=== PATIENT | female | born 1975 | race Caucasian/White ===

== ENCOUNTER 2019-01-15 07:36 | Outpatient (CLI) | payer OTHER ==
[~2019-01-15] VITALS: Ht 188 cm; Wt 79.9 kg
[~2019-01-15 07:36] MED LIST: METH2.5T PO
[2019-01-15 09:30] VITALS: BP 99/70
[2019-01-15] MEDS ORDERED: SODIUM CHLORIDE 0.9% IV ONE (10:00)
[2019-01-15] MEDS ORDERED: FILTER 1.2 MICRON IV ONE (10:00)
[2019-01-15] MEDS ORDERED: ABATACEPT IV ONE (10:00)
== END 2019-01-15 23:59 | disposition home or self-care (01) ==
LOC: INFUSION 07:36
PROVIDERS: ATTEND Internal Medicine
DX: M05.79 Rheumatoid arthritis with rheumatoid factor of multiple sites without organ or systems involvement (principal)
CPT/HCPCS: 96365; J0129

== ENCOUNTER 2019-02-12 07:49 | Outpatient (CLI) | payer OTHER | END 2019-02-12 23:59 | disposition home or self-care (01) | LOC: INFUSION 07:49 | PROVIDERS: ATTEND Internal Medicine | DX: Z02.9 Encounter for administrative examinations, unspecified (principal) ==

== ENCOUNTER → 2019-03-19 | Outpatient (CLI) | payer OTHER ==
[~2019-03-19] VITALS: Ht 188 cm; Wt 81.7 kg
[~2019-03-19] MED LIST changes: +ABATACEPT IV ONE; +FILTER 1.2 MICRON IV ONE; +SODIUM CHLORIDE 0.9% IV ONE
[2019-03-19 07:40] VITALS: BP 121/82
== END | disposition home or self-care (01) ==
LOC: INFUSION 10:14
PROVIDERS: ATTEND Internal Medicine
DX: M05.79 Rheumatoid arthritis with rheumatoid factor of multiple sites without organ or systems involvement (principal)
CPT/HCPCS: 96365; J0129

== ENCOUNTER → 2019-04-18 | Outpatient (CLI) | payer OTHER ==
[~2019-04-18] VITALS: Ht 188 cm; Wt 81.7 kg
[2019-04-18 14:05] VITALS: BP 103/66
== END | disposition home or self-care (01) ==
LOC: INFUSION 14:09
PROVIDERS: ATTEND Internal Medicine
DX: M05.79 Rheumatoid arthritis with rheumatoid factor of multiple sites without organ or systems involvement (principal)
CPT/HCPCS: 96365; J0129

== ENCOUNTER 2019-05-17 09:28 | Outpatient (CLI) | payer OTHER ==
[~2019-05-17] VITALS: Ht 188 cm; Wt 80.9 kg
[~2019-05-17 09:28] MED LIST changes: -ABATACEPT IV ONE; -FILTER 1.2 MICRON IV ONE; -SODIUM CHLORIDE 0.9% IV ONE
[2019-05-17 09:35] VITALS: BP 109/74
[2019-05-17] MEDS ORDERED: SODIUM CHLORIDE 0.9% IV ONE (10:00)
[2019-05-17] MEDS ORDERED: ABATACEPT IV ONE (10:00)
== END 2019-05-17 23:59 | disposition home or self-care (01) ==
LOC: INFUSION 09:28
PROVIDERS: ATTEND Internal Medicine
DX: M05.79 Rheumatoid arthritis with rheumatoid factor of multiple sites without organ or systems involvement (principal)
CPT/HCPCS: 96365; J0129

== ENCOUNTER → 2019-06-11 | Outpatient (CLI) | payer OTHER ==
[~2019-06-11] MED LIST changes: +METH7.5T PO
== END | disposition home or self-care (01) ==
LOC: CFH 12:11 → EDSTATUS 13:00
PROVIDERS: ATTEND Nurse Practitioner Family
DX: N60.01 Solitary cyst of right breast (principal); R92.1 Mammographic calcification found on diagnostic imaging of breast
CPT/HCPCS: 76642; 77065

== ENCOUNTER → 2019-08-09 | Outpatient (CLI) | payer OTHER ==
[~2019-08-09] VITALS: Ht 188 cm; Wt 77.7 kg
[~2019-08-09] MED LIST changes: +ABATACEPT IV ONE; +FILTER 1.2 MICRON IV ONE; +SODIUM CHLORIDE 0.9% IV ONE
[2019-08-09 09:33] VITALS: BP 104/70
== END | disposition home or self-care (01) ==
LOC: INFUSION 09:23
PROVIDERS: ATTEND Internal Medicine
DX: M05.79 Rheumatoid arthritis with rheumatoid factor of multiple sites without organ or systems involvement (principal)
CPT/HCPCS: 96365; J0129